=== PATIENT | male | born 1970 | race Caucasian/White ===

== ENCOUNTER 2017-03-13 19:07 | Emergency (ER) | payer MEDICAID ==
[2017-03-13 19:53] VITALS: BP 137/93
== END 2017-03-13 21:49 | disposition home or self-care (01) ==
LOC: ED 19:07
DX: S43.101A Unspecified dislocation of right acromioclavicular joint, initial encounter (principal); Z79.1 Long term (current) use of non-steroidal anti-inflammatories (NSAID); W11.XXXA Fall on and from ladder, initial encounter; Y93.89 Activity, other specified; Y92.89 Other specified places as the place of occurrence of the external cause; Y99.8 Other external cause status
CPT/HCPCS: J1885